=== PATIENT | male | born 1980 | race Caucasian/White ===

== ENCOUNTER 2020-04-20 09:59 | Emergency (ER) | payer MEDICAID, SELFPAY ==
[~2020-04-20] VITALS: Ht 167.6 cm; Wt 70.5 kg
[2020-04-20 11:26] LABS: COVID AG,FIA SOURCE NASOPHARYNGEAL
[2020-04-20 12:25] VITALS: BP 149/86
== END 2020-04-20 12:42 | disposition home or self-care (01) ==
LOC: EMS 10:20
DX: U07.1 COVID-19 (principal); M79.10 Myalgia, unspecified site; M54.5 Low back pain
CPT/HCPCS: 87426